=== PATIENT | male | born 1945 | race Caucasian/White ===

== ENCOUNTER → 2020-12-26 09:44 | Outpatient (BNVA) | payer MEDICARE, BC, SELFPAY | PROVIDERS: Visit Provider Student in an Organized Health Care Education/Training Program | DX: M16.11 Unilateral primary osteoarthritis, right hip (principal); I48.91 Unspecified atrial fibrillation; Z79.01 Long term (current) use of anticoagulants ==

== ENCOUNTER 2020-12-26 11:01 | Outpatient (CLI) | payer MEDICARE, BC, SELFPAY ==
[2020-12-26 11:32] LABS: HCT 45.7 % (40.0-50.0); HGB 15.3 g/dL (13.5-17.5); MCH 30.2 pg (27.0-33.0); MCHC 33.5 % (32.0-36.0); MCV 90.1 fL (80-95); MPV 10.1 fL (8.0-11.0); Platelet Count 181 10^3/uL (130-400); RBC 5.07 10^6/uL (4.36-5.78); RDW 12.8 % (11.8-14.1); RDW-SD 41.7 fL; WBC 5.85 10^3/uL (4.4-10.8)
[2020-12-26 12:08] LABS: Anion Gap 8.1 mmol/L (3-11); BUN 14 mg/dL (7-18); CO2 26.9 mmol/L (21.0-32.0); CREATININE 0.9 mg/dL (0.70-1.30); Calcium 9.1 mg/dL (8.5-10.1); Chloride 106 mmol/L (98-107); Glucose 88 mg/dL (74-106); Potassium 4.2 mmol/L (3.5-5.1); Sodium 141 mmol/L (136-145)
== END 2020-12-26 11:02 | disposition home or self-care (01) ==
PROVIDERS: Visit Provider Student in an Organized Health Care Education/Training Program
DX: M25.551 Pain in right hip (principal); M16.11 Unilateral primary osteoarthritis, right hip; Z01.818 Encounter for other preprocedural examination; Z01.812 Encounter for preprocedural laboratory examination
CPT/HCPCS: 36415; 80048; 85027; 86850; 86900; 86901; 99214

== ENCOUNTER 2021-01-19 03:27 | Outpatient (CLI) | payer MEDICARE, BC, SELFPAY ==
[2021-01-19 11:23] LABS: Source Nasal/Nares
[2021-01-19 14:34] LABS: COVID-19 PCR Negative (Negative)
== END 2021-01-19 03:28 | disposition home or self-care (01) ==
LOC: LBO 03:27
PROVIDERS: PCP Internal Medicine; Visit Provider Student in an Organized Health Care Education/Training Program
DX: Z20.822 Contact with and (suspected) exposure to COVID-19 (principal); Z01.818 Encounter for other preprocedural examination
CPT/HCPCS: 87635

== ENCOUNTER 2021-01-20 08:58 | Day surgery (SDC) | payer MEDICARE, BC, SELFPAY ==
[2021-01-20] VITALS (9 sets, daily range): BP systolic 105–138; BP diastolic 62–87; PULSE 47–64; RESP 12–18; TEMP 36.3–36.6; O2SAT 93–99
[2021-01-20] MEDS: Lactated Ringers 1,000 ML 80 ML IV (09:43)
[2021-01-20] MEDS: Celecoxib 200 MG CAP 400 MG PO (09:51)
[2021-01-20] MEDS: Acetaminophen 500 MG TAB 1000 MG PO (09:51)
[2021-01-20] MEDS: ceFAZolin 2 GM/50 ML BAG IVPB (10:38)
[2021-01-20] MEDS: Ketorolac 30 MG/ML VIAL (11:08)
[2021-01-20] MEDS: Bupivacaine 0.25% Pres-Free 30 ML VIAL (11:08)
--- NOTE | 2021-01-20 11:58 | DI.RAD_ITS ---
EXAM: XR HIP RT IN OR CLINICAL HISTORY: RIGHT HIP DJD TECHNIQUE: 2D and realtime digital imaging was performed. CONTRAST MATERIAL: Refer to procedure report. COMPARISON: No exams were available for comparison FINDINGS: Fluoroscopy was provided for Dr. Chiang during the performance of a right hip replacement. Please refer to the procedure report for complete details. Fluoro time: 48.4 seconds IMPRESSION: RADIATION DOSE DELIVERED:
--- NOTE | 2021-01-20 13:38 | PDOC.DSDIS_ITS ---
Discharge Plan Disposition Patient Disposition: HOME Condition: Good Discharge Details Reason For Visit: Right BARBARA Attending Provider: Emmanuel Chiang Primary Care Provider: ISAAK MACIAS Home Meds and New Rx's Prescriptions: New aspirin 81 mg tablet,delayed release (DR/EC) 81 mg PO BID Qty: 60 RF: 0 celecoxib [Celebrex] 200 mg capsule 200 mg PO BID Qty: 60 RF: 0 acetaminophen [Tylenol Extra Strength] 500 mg tablet 500 mg PO Q6H PRNQty: 90 RF: 0 oxycodone 5 mg tablet 5 mg PO Q4H PRNQty: 18 RF: 0 Continued prednisone 5 mg tablet 1 mg PO DIRECTED RF: 0 famotidine 20 mg tablet 40 mg PO DAILY RF: 0 Xarelto 20 mg tablet 20 mg PO DAILY RF: 0 acetaminophen [Tylenol Extra Strength] 500 mg Tablet 1,000 mg PO TID RF: 0 pramipexole 0.125 mg Tablet 0.125 mg PO QHS RF: 0 omega-3 fatty acids [Fish Oil Concentrate] 1,000 mg Capsule 1,000 mg PO DAILY RF: 0 zolpidem 5 mg tablet 5 mg PO HS PRNRF: 0 Discontinued hydrocodone-acetaminophen 5-325 mg Tablet 1 tab PO TID PRN PRNRF: 0 Discharge Instructions Additional Instructions: Total Hip Discharge Instructions Activity: The most important activity is to walk. You should try to take short walks a few times a day. You have no restrictions on movement or positioning, but do not try to force what you do. You will find some stiffness and weakness with hip flexion (lifting your knee). Do not try to strengthen this too early, continue to practice walking and stairs and this will come. - Outpatient physical therapy can be helpful to help return you to a normal gait and improve your flexibility and strength. This can start around 2 weeks. For some patients, it?s not necessary. Usually this is determined at the time of discharge or at the first post-operative visit. - You should wear the LYNSEY hose on both legs for 2 weeks. Dressing: Keep the surgical dressing in place for at least one week. After the first week it may be removed and replace with light gauze and tape or nothing. It may get wet after 3 days but avoid soaking the dressing. If it gets wet, just lightly pat dry. It is important to always keep some gauze between skin folds, especially when you are sitting. Spend some time with the wound exposed when you are lying flat as the incision does wrinkle onto itself. Medications: - You should take Tylenol and an anti-inflammatory Celebrex as your primary pain control medications. If the Celebrex is too expensive or not covered, please call the office for another alternative (Advil/Ibuprofen or Naproxen/Aleve). - You have been prescribed a stronger pain medication Oxycodone for breakthrough pain, take as needed as prescribed. - Continue with your Pepcid AC to help reduce stomach acid and reflux. - You will be taking Aspirin 81mg twice a day for DVT prevention unless instructed otherwise. - If you have constipation you should take Colace or Miralax (both [id number]). It takes most people 3-4 days to have a bowel movement. Follow-up: 2 weeks If you have any acute concerns or questions, please do not hesitate to contact the office at [phone]. You may contact Dr. Chiang with any questions after hours through the hospital at [phone] or on his cell phone at [phone]. Referrals: Emmanuel Chiang MD [ [facility] STAFF PHYSICIAN] - Equipment/Supplies: Walker Activity:: Activity as Tolerated Remove Dressings/Wound Care:: Do Not Remove Shower/Bathe:: 48 hours Diet:: As Tolerated Discharge Orders Discharge Orders: Discharge Order (Routine); Ordered 01/20/21 Ordered By: Adwoa Perdomo DS: Diagnosis Discharge Diagnosis (1) Primary osteoarthritis of right hip: Status: Acute
--- NOTE | 2021-01-20 15:30 | IN_ITS ---
Date of service: 01/20/21 Time of Service: 15:30 PT Notes Visit Reasons: Right BARBARA Physical Therapy Day Surgery Initial Evaluation Date: 01/20/2021 Referring Doctor: Emmanuel Chiang MD PT Orders: PT CONSULT: Status post Ortho surgery Precautions: WBAT on R LE with AD. Patient Profile/Admitting Diagnosis: This is a 75-year-old male with primary osteoarthritis of the right hip and is status post right total hip arthroplasty on postop day 0. PMHX: Medical History (Updated 12/26/20 @ 13:28 by ERICK Powell) A-fib GERD (gastroesophageal reflux disease) Temporal arteritis Social History/Home Situation: Lives with in a private home with 3 steps to enter and a rail on the left side. He has a flight of steps to the bedroom of the house onto the second floor with 1 rail. Retired mathematics faculty member. Independent with all aspects of ADLs prior to surgery. Equipment Owned/DME: Front wheeled walker, single-point cane Subjective: Reports numbness in her right hip, buttocks, B feet, and toes. Denies headache, chest pain, and dizziness throughout session. Objective: General Observation: Mepilex Ag over surgical incision. IV access in right UE. TEDS in B legs. Mental Status: Alert and oriented x 4 Pain: 2/10 pain in R hip with some exercise performance ROM: Right Lower Extremity: Hip flexion lacks the last 10 degrees while seated at edge of bed. Hip abduction WFL. Knee flexion WFL. Ankle dorsiflexion WFL. Ankle plantarflexion WFL. Left Lower Extremity: Hip flexion WFL. Hip abduction WFL. Knee flexion WFL. Ankle dorsiflexion WFL. Ankle plantarflexion WFL. Strength: Right Lower Extremity: Hip flexors 3-/5. Hip abductors 4/5. Knee flexors 4/5. Knee extensors 4-/5. Ankle dorsiflexors 5/5. Ankle plantarflexors 5/5. Left Lower Extremity:Hip flexors 5/5. Hip abductors 5/5. Knee flexors 5/5. Knee extensors 5/5. Ankle dorsiflexors 5/5. Ankle plantarflexors 5/5. Sensation: Numbness in bilateral gluteal areas, right hip, and B feet Bed Mobility/Transfers: Supine to sit independent Sit to stand standby assist Stand to sit standby assist Bed to chair standby assist Gait: Guided patient through level surface ambulation of up to 200 feet using front wheeled walker with standby assist of PT and wheelchair follow of nurse Radha early. Step through gait pattern. Stairs: Patient provided with initial instruction and minimal verbal cueing for correct gait pattern and safe performance of ten 6-inch steps while holding onto 1 rail with 1 hand and single-point cane with another requiring contact-guard assist with step to gait pattern. Balance: Static Sitting: Normal Dynamic Sitting: Normal Static Standing: Fair Dynamic Standing: Fair Special Tests: Mobility Limitations Standardized Measure [facility] AM-PAC 6 clicks Basic Mobility Inpatient Short Form: Raw Score: 23 CMS Score: 11% deficit Informed Consent/Education: Patient instructed in purpose of PT consult. Packet containing R BARBARA exercise protocol has been given to patient. Education and training on initial set of exercises that can be done at home have been completed with patient. Assessment: Requires the use of a walker for all mobility ADL performance to maximize independence and reduce fall risk. He will have the support of his as he recovers at home. He demonstrates a good understanding of initial HEP given to him today. Patient presents with clinical signs and symptoms consistent with current/admitting diagnoses that have resulted to mobility limitations, gait instability, generalized weakness, and impairment of motor control as demonstrated by the following impairment level findings: 1. Decreased strength to l right hip major muscle groups 2. Impaired standing balance 3. Limitation of joint range of motion in right hip Impairments are contributing to the following functional limitations: 1. Inability to safely ambulate without assistive device 2. Increase completion time for mobility ADL performance 3. Increased fall risk Patient is assessed as a [id number] moderate complexity based on the following: History: 75-year-old male with impairment level findings, functional limitations, and past medical history as indicated above Examination: Demonstrable impairment in strength, balance, and mobility level with underlying impairments and functional limitations as documented above Presentation: Evolving Decision Makin moderate complexity Goals: N/A. PT evaluation and 1-2 treatment sessions only for functional mobility training using recommended AD and for HEP instruction. Plan of Care/Treatment Plan: N/A. PT evaluation and 1-2 treatment session only for functional mobility training using recommended AD and for HEP instruction. DISCHARGE RECOMMENDATIONS: Home when medically cleared by orthopedic surgeon. May benefit from outpatient PT services in order to regain independent community ambulation without assistive device. Has needed mobility equipment at home. TREATMENT CODE/TIME: 27232 x 30 minutes, 76183 x 30 minutes beginning at 15:30 PM. Thank you for the opportunity to participate in the care of this patient. Eileen Arriaza PT, DPT, CLT [facility] [place], [place]
--- NOTE | 2021-01-20 20:43 | W.PM.OP ---
Date of service: 01/20/21 Time of Service: 12:31 Operative Note Operative Note DATE OF PROCEDURE: 01/20/21 PRE-OP DIAGNOSIS: Right Hip Osteoarthritis POST-OP DIAGNOSIS: same PROCEDURE: Right Anterior Total Hip Arthroplasty SURGEON: Emmanuel Chiang COIN TELLER: Adwoa Perdomo ANESTHESIA TYPE: Spinal Refer to Anesthesia Record ESTIMATED BLOOD LOSS: 200 PATHOLOGY: none sent COMPLICATIONS: None Patient was transported to: PACU Patient's condition: stable Implants: 1. Depuy [place] Acetabular Component, 56mm 2. Depuy Acetabular Liner, [id number] 3. Depuy Corail Cox[place] V[place] Collared Femoral Stem, Size 13 4. Depuy Altrx Ceramic Femoral Head, Size 36+1.5mm Indications: I have seen Barak in clinic for symptoms of hip arthritis, confirmed with radiographic findings. Barak has exhausted nonoperative methods and was having significant limitations in daily function and desired better function and less pain. I discussed the technical details of a hip replacement. I explained the risks of the procedure to include, but not limited to, bleeding, infection, pain, stiffness, fracture, damage to nerves and vessels, damage to muscles and tendons, loosening, instability, leg length inequality, need for repeat procedure, blood clot and cardiopulmonary demise. Despite these risks, he elected to proceed. Findings: There was significant signs of arthritis throughout the hip. Procedure Description: Barak was greeted in the preoperative holding area where the correct side was identified and marked. The consent was reviewed with the patient and signed. The history and physical was updated. All questions were answered. Barak was taken back to the operating room. A spinal anesthestic was then administered. The feet were wrapped with cast padding and Coban and then placed into the boot liners and then into the boots. Care was taken to protect the skin and make sure the heels were fully down and the boots were stable. The patient was then positioned onto the HANA table. Both legs were held in a neutral position. SCDs were applied. The patient was then slid down onto a peroneal post. Prophylactic antibiotics in the form of Cefazolin were administered. 1g of Tranxemic Acid was given intravenously within 30 minutes of incision. The right leg was then prepped with Chloraprep and draped in a standard fashion. A second prep with Chloraprep was performed prior to placement of a shower-curtain type drape with Iodine impregnated skin protection. A timeout to confirm correct identity, side and site, procedure, allergies, anesthesia, and medical concerns was performed. An obliquely oriented incision was made starting lateral to the ASIS and running distal over the Tensor Fascia Blessing (TFL) muscle belly toward the fibular head, approximately 10cm. The skin and soft tissue was dissected sharply, through Nu?s fascia, and to the fascia of the TFL. With the fascia and superior border of the IT band identified, the fascia was incised with a new knife just above any perforators from the IT band. The TFL muscle belly was bluntly dissected away from the fascia and moved laterally. The fat between TFL and rectus was identified to ensure the dissection was not within the TFL. Blunt dissection created space between abductors and the capsule and retractor was placed over the lateral femoral neck. The fibers of the rectus femoris tendon were identified and these were freed from the anterior capsule. A second cobra retractor was placed around the medial femoral neck. The TFL was further retracted laterally to show the deep fascia. Careful dissection through this layer identified three main crossing vessels of the lateral femoral circumflex. These were cauterized in multiple locations and then cut without any noticeable bleeding. The TFL was further released bluntly from the deep fascia to expose anterior hip capsule and fat The Alfredo orthopaedic retractor was then placed beneath the TFL and against sartorius and medial soft tissues to protect and retract the soft tissues. A T-capsulotomy was then performed starting at the superior lateral acetabulum and moving distally to the intertrochanteric ridge. These capsular flaps were tagged with a No. 1 Ethibond and elevated from within. The capsular flaps were released to the shoulder of the lateral neck and to the lesser trochanter to give excellent visualization of the proximal femur. A neck osteotomy was performed using an oscillating saw based on preoperative templates. This cut started in the shoulder and of the lateral neck and exited medially. The saw was at all times directed medially to avoid injury to the greater trochanter. Gross traction was applied to the leg and the osteotomy opened. The femoral head was removed with a corkscrew, making sure to protect the TFL on its exit. Traction was released after head removal. This was measured on the back table to determine the starting reamer size. Portions of the rectus obscuring visualization were minimally elevated off the superior acetabulum. An anterior retractor was placed over the anterior wall between capsule and labrum and attached to the Gripper retraction system. The femur was rotated to 90 degrees and medial capsule was fully released until the lesser trochanter was palpable and visible; the femur was returned to 30 degrees. A posterior retractor was placed similarly between capsule and labrum. This provided excellent visualization. The contents of the cotyloid fossa were removed with electrocautery and the labrum was removed with a knife. There was a notable floor osteophyte. There was significant chondromalacia of the superior acetabulum. Acetabular reaming began with a 52mm reamer. This first reaming was directed anterior to posterior and medial to get down to the true floor. This was inspected and reamed until the true floor was reached. The anterior retractor was then released and entry and exit was provided by traction on the capsular flaps. I then reamed sequentially up to a 56mm reamer where good fit was obtained. The larger reamers were oriented based on anatomical reference of the anterior and lateral lópez to ensure proper abduction and anteversion. Positioning and size was confirmed with the fluoroscopy. A 56mm Depuy [place] acetabular component was selected. The acetabulum was reamed around the periphery with the selected acetabular size to prevent a rim fit. The deep tissues were irrigated. The acetabular component was then impacted in a position of about 40-45 degrees of abduction and 15-20 degrees of anteversion, using the patient?s anatomy as the ultimate landmark. Fluoroscopy was used to confirm this. There was excellent highway maintenance technician of the acetabular component and the inserting handle was removed. A primary acetabular screw was placed into the ilium by drilling through one of the holes in the acetabular component. This was measured and an approrpriately sized screw was placed with excellent purchase. It was checked not to be proud. A second screw was placed in a similar fashion. The acetabular liner, Depuy [id number] polyethylene liner, was inserted and lined up with the tines of the acetabular component. There was no soft tissue interposition. The liner was then impacted into position and confirmed to be well-seated. A portion of the jose-articular cocktail was then injected around the acetabulum into the capsule and periosteum. This cocktail consisted of 50cc of 0.25% Bupivicaine and 20cc of Exparel and 30mg of Ketorolac. The leg was rotated to 120 degrees. Any remaining medial capsule was released until the lesser trochanter was easily palpable. A retractor was placed medially. The lateral capsule was further released into the shoulder to allow access to the greater trochanter. A Mcarthur retractor was placed over the greater trochanter which allowed the trochanter to flip in front of the capsule for excellent exposure. The leg was brought down into maximal extension and 20 degrees of adduction while ensuring there was no impingement on the acetabulum. Any remnant capsule within the trochanter was released. Piriformis and obturator externis were identified and protected. There was excellent access to the proximal femur. The lateral neck remnant was removed with a rongeur. A blunt canal probe was used to identify the canal and trajectory for later broaching. A box osteotome initiated the broach course. A small curved rasp and a curved curette were used to work laterally. Broaching then began with a size 8 Corail broach. This was inserted manually around the trochanter and into the canal before mallet blows. The broach was seated to a few millimeters below the cut level based on the neck cut and the preoperative template. Sequential broaching was continued with the [employer] pneumatic broaching device until a tight fit was obtained with good rotational control of the femur. A trial coxa vara neck was inserted along with a +1.5 trial head. The leg was brought out of extension and adduction and then reduced with traction and internal rotation. The leg was stable anteriorly in a position of 30 degrees of extension and 90 degrees of external rotation. Fluoroscopy was used to ensure there was no fracture and the stem was seated well. Leg lengths were checked with an AP pelvis and pelvic reference points. [employer] navigation system was used to confirm appropriate positioning and leg length and offset. Once content with the desired offset and leg lengths, the leg was brought back into extension, external rotation and adduction. The periosteum and surrounding tissue was injected with remaining portion of the jose-articular cocktail. The proximal femur was irrigated as well as the deep tissues. The Depuy Corail coxa vara collared stem, size 13, was then manually inserted into the proximal femur making sure to control rotation. It was then malleted into position with light blows, giving breaks to allow bone expansion and decrease risk of fracture. The selected Depuy Altrx Ceramic Head, size 36+1.5mm, was then placed onto the clean and dry trunnion and secured with impaction onto the tapered fit. The leg was brought back out of extension and adduction and reduced with traction and internal rotation. Stability was confirmed with no shuck at 90 degrees of external rotation and 30 degrees of extension. No impingement through range of motion arc. Final x-ray images were obtained with fluoroscopy to confirm adequate positioning and no intraoperative fracture. The deep tissues were thoroughly irrigated with Irrisept chlorhexadine solution. The capsule was then reapproximated with the previously placed Ethibond sutures. The TFL fascia was finally closed with a No. 2 Stratafix, barbed suture. Deep tissues were then reapproximated with 0 Vicryl and a running 2-0 Vicryl. The skin was closed with a running 4-0 Monocryl in a subcuticular fashion. This was reinforced with skin glue. A Mepilex silver dressing was applied. At the end of the case, all counts were correct. Barak was transferred to the hospital bed without difficulty and suffering no apparent complication. Barak has a good prognosis. Physical therapy will start today and without restrictions, weight-bearing as tolerated. Aspirin 81mg BID will be used for DVT prophylaxis.
== END 2021-01-20 17:00 | disposition home or self-care (01) ==
PROVIDERS: PCP Internal Medicine; Visit Provider Student in an Organized Health Care Education/Training Program
PROC: (CPT 27130; principal; 2021-01-20 11:45)
DX: M16.11 Unilateral primary osteoarthritis, right hip (principal); I48.0 Paroxysmal atrial fibrillation; K21.9 Gastro-esophageal reflux disease without esophagitis
CPT/HCPCS: 20985; 27130; C1776; 36415; 86850; 86900; 86901; 97162; 97530; 73501; J0690; J1885; J2405

== ENCOUNTER 2021-02-05 13:34 | Outpatient (CLI) | payer MEDICARE, BC, SELFPAY ==
--- NOTE | 2021-02-05 11:15 | DI.RAD_ITS ---
EXAM: XR HIP RT COMPLETE AP PELVIS INDICATION: 1ST POST OP R BARBARA. COMPARISON: XR HIP RT IN OR from 01/20/2021 XR HIP RT IN OR from 01/20/2021 TECHNIQUE: 2D digital imaging was performed. FINDINGS: A right total hip prosthesis is noted. There is no change in alignment when compared with intraopera tive images. No abnormal bony lucencies are seen. There are moderate degenerative changes of the le ft hip. DATA REPOSITORY: RADIATION DOSE DELIVERED:
== END 2021-02-05 13:35 | disposition home or self-care (01) ==
LOC: DIORS 13:35
PROVIDERS: PCP Internal Medicine; Referring Provider Internal Medicine; Visit Provider Student in an Organized Health Care Education/Training Program
DX: Z47.1 Aftercare following joint replacement surgery (principal); Z96.641 Presence of right artificial hip joint
CPT/HCPCS: 73502

== ENCOUNTER 2022-01-18 10:50 | Outpatient (CLI) | payer MEDICARE, BC, SELFPAY ==
--- NOTE | 2022-01-18 10:33 | DI.RAD_ITS ---
Exam(s) XR HIP PELVIS ADULT BL EXAM: XR HIP PELVIS ADULT BL CLINICAL HISTORY: ANNUAL F/U R BARBARA. TECHNIQUE: 2D digital imaging was performed. COMPARISON: CR XR HIP RT COMPLETE AP PELVIS from 02/05/2021 FINDINGS: No acute fractures nor osseous lesions. Position alignment of the components of the right prosthesis remain stable. No fracture or loosening evident. The opposite-left hip there are mild degenerative changes evident. There is a calcific density later al to the femoral neck measuring 8 x 4 millimeters, previously present. Bone density is age-appropri ate. IMPRESSION: DATA REPOSITORY: RADIATION DOSE DELIVERED:
== END 2022-01-18 10:51 | disposition home or self-care (01) ==
LOC: DIORS 10:50
PROVIDERS: PCP Internal Medicine; Visit Provider Student in an Organized Health Care Education/Training Program
DX: Z96.641 Presence of right artificial hip joint (principal); M25.551 Pain in right hip; M70.71 Other bursitis of hip, right hip; M16.12 Unilateral primary osteoarthritis, left hip
CPT/HCPCS: 73521; 99215